=== PATIENT | female | born 1980 | race American Indian/Alaskan Native ===

== ENCOUNTER 2017-07-13 20:44 | Outpatient (CLI) | payer MEDICAID ==
[2017-07-13 21:41] LABS: Hematocrit 29.1 % (30.3-42.9); Mean Corpuscular HGB Conc 31 % (30-34); Mean Corpuscular Hemoglobin 22 pg (28-32); Mean Corpuscular Volume 70 fl (79-97); Platelet Count 424 K/mm3 (140-440); Red Blood Count 4.15 M/mm3 (3.65-5.03); Red Cell Distribution Width 18.8 % (13.2-15.2)
[2017-07-13 21:44] LABS: Bilirubin,Urine NEG (Negative); Blood,Urine NEG (Negative); Color,Urine Yellow (Yellow); Mucus,Urine FEW /HPF; Urobilinogen,Urine < 2.0 mg/dL (<2.0)
[2017-07-13] MEDS ORDERED: LACTATED RINGERS 500 ML IV ONE (21:53)
[2017-07-13 22:00] VITALS: BP 137/76
[2017-07-13 22:03] LABS: Alanine Aminotransferase 6 units/L (7-56); Uric Acid 3.4 mg/dL (3.5-7.6)
== END 2017-07-13 22:25 | disposition home or self-care (01) ==
LOC: TRG 20:44
PROVIDERS: ATTEND Obstetrics & Gynecology
DX: O47.03 False labor before 37 completed weeks of gestation, third trimester (principal); Z3A.36 36 weeks gestation of pregnancy
CPT/HCPCS: 36415; 59025; 81001; 82565; 83615; 84450; 84460; 84550; 85027